=== PATIENT | female | born 1990 | race African-American/Black ===

== ENCOUNTER 2017-10-05 18:55 | Emergency (ER) | payer OTHER ==
[~2017-10-05] VITALS: Ht 170.2 cm; Wt 50.9 kg
[2017-10-05 19:02] VITALS: Ht 170.2 cm; Wt 50.9 kg
--- NOTE | 2017-10-05 20:19 | ERD ---
ER Documentation Chief Complaint Chief Complaint facial numbenss since this AM, no Neuro deficits now HPI Is a 27-year-old female presenting to the emergency department complaining of right-sided facial numbness since this morning. Patient states that she heard a pop in her neck and did a quick turn, she experienced vertigo and felt imbalanced while she was walking for 2 hours and then resolved. Patient states that she started experiencing numbness and tingling in her face since that occurrence. She denies headache, any other neuro deficit ROS All systems reviewed and are negative except as per history of present illness. Allergies Allergies: Coded Allergies: codeine (Verified Allergy, Unknown, 10/05/17) PMhx/Soc Medical and Surgical Hx: pt denies Medical Hx, pt denies Surgical Hx History of Surgery: No Anesthesia Reaction: No Hx Neurological Disorder: No Hx Respiratory Disorders: No Hx Cardiac Disorders: No Hx Psychiatric Problems: No Hx Miscellaneous Medical Probl: No Hx Alcohol Use: No Hx Substance Use: No Hx Tobacco Use: No Smoking Status: Never smoker Physical Exam Vitals Vital Signs Date Time Temp Pulse Resp B/P Pulse Ox O2 Delivery O2 Flow Rate FiO2 10/05/17 21:27 98.5 84 15 119/69 98 Room Air 10/05/17 19:02 98.7 98 18 116/73 97 Physical Exam GENERAL: well-developed/well-nourished, in no apparent distress, non-toxic appearing HENT: NC/AT, bilateral tympanic membrane is normal with good cone of light, nares patent, oropharynx clear without exudates EYES: Conjunctiva normal, PERRLA, EOMI, no nystagmus noted NECK: Supple, no lymphadenopathy PULM: CTA bilaterally, no rales, rhonchi, or wheezing heard CV: Normal S1S2, RRR, good capillary refill GI: Soft, non-distended, normal bowel sounds, non-tender BACK: No midline tenderness, no masses, No CVAT EXT: No clubbing, cyanosis, or edema NEURO: Alert and orientated to person, place, and time. CN II-IIX intact. Gait and coordination were normal. 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 Patient has normal neurologic exam, she appears well and has stable vital signs. She stable to be discharged home to follow-up with her primary care physician. A CT scan of the head was done and did not show any evidence of acute pathology. I have a low suspicion for central vertigo. Facial numbness is likely due to her anxiety. No evidence of CVA. Discussed return to the ER for any worsening symptoms patient understands and agrees with this plan Departure Diagnosis: Primary Impression: Numbness Condition: Stable CHRISTEL HUA PA-C Oct 05, 2017 20:19
--- NOTE | 2017-10-05 21:04 | RADRPT ---
PROCEDURE: CT Brain without contrast. CLINICAL INDICATION: Numbness and vertigo. TECHNIQUE: A CT of the brain was performed utilizing axial imaging from the skull base through the vertex without IV contrast. Multiplanar reformatted images were made. Images were reviewed on a [employer] workstation. The CTDIvol is 44.63 mGy and the DLP is 630.20 mGycm. DICOM images are available. One or more of the following dose reduction techniques were utilized: 1.) Automated exposure control 2.) Adjustment of the mA +/- kV according to patient's size 3.) Use of iterative reconstruction technique. COMPARISON: None FINDINGS: There is no intracranial hemorrhage, mass effect, or midline shift. No extra-axial fluid collection is seen. The ventricles and sulci are normal in size and configuration. The density of the brain is normal, and the cowan white matter differentiation appears well-preserved. The visualized paranasal sinuses and osseous structures are grossly unremarkable. IMPRESSION: 1. No evidence of acute intracranial pathology. 2. The brain is normal in appearance. RPTAT: [facility] Physician Hoa Date Time Electronically viewed and signed by Physician Hoa on 10/05/2017 21:04 RS/
[2017-10-05 21:27] VITALS: BP 119/69; PULSE 84; RESP 15; TEMP 98.5
== END 2017-10-05 21:28 | disposition home or self-care (01) ==
LOC: FTE 18:55
DX: R20.0 Anesthesia of skin (principal); R42 Dizziness and giddiness
CPT/HCPCS: 70450; Z7502

== ENCOUNTER 2018-01-12 10:21 | Emergency (ER) | END 2018-01-12 12:57 | disposition home or self-care (01) ==

== ENCOUNTER 2019-05-05 13:17 | Emergency (ER) | payer OTHER ==
[~2019-05-05] VITALS: Ht 170.2 cm; Wt 50.0 kg
[~2019-05-05 13:17] MED LIST: NAPR-985 PO
[2019-05-05 13:19] VITALS: Ht 170.2 cm; Wt 50.0 kg
[2019-05-05] MEDS ORDERED: ONDANSETRON 4 MG INJ IV STA ×2 (13:43→14:43)
[2019-05-05] MEDS ORDERED: FAMOTIDINE 20 MG INJ IV STA (13:43)
[2019-05-05] MEDS ORDERED: LIDOCAINE/MYLANTA 40 ML BTL PO STA (13:43)
[2019-05-05] MEDS ORDERED: SOD CHLORIDE 0.9% 1,000 ML IV STA (13:43)
--- NOTE | 2019-05-05 13:59 | ERD ---
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 Patient states that she normally takes zinc s upplements with food and this time she did not. She immediately started having some epigastric pain and started having nausea with multiple episodes of vomiting. Patient admits to a constant epigastric pain at this time. States that she no longer feels like she is going to vomit. States that this does not feel like heartburn. Denies fevers, chills, diarrhea, constipation, melena, hematochezia, dysuria, hematuria, vaginal pain, vaginal discharge and all other symptoms. Denies chance of being ROS All systems reviewed and are negative except as per history of present illness. Medications Home Meds Active Scripts Famotidine* (Pepcid*) 20 Mg Tablet, 20 MG PO BID for 4 Days, TAB Prov:BIPIN COX PA-C 05/05/19 Naproxen* (Naprosyn*) 500 Mg Tablet, 500 MG PO BID PRN for PAIN AND/OR INFLAMMATION, #30 TAB Prov:NADIA SWAIN PA-C 01/12/18 Allergies Allergies: Coded Allergies: codeine (Verified Allergy, Unknown, 05/05/19) PMhx/Soc History of Surgery: No Anesthesia Reaction: No Hx Neurological Disorder: No Hx Respiratory Disorders: No Hx Cardiac Disorders: No Hx Psychiatric Problems: No Hx Miscellaneous Medical Probl: No Hx Alcohol Use: No Hx Substance Use: No Hx Tobacco Use: No FmHx Family History: No diabetes Physical Exam Vitals Vital Signs Date Temp Pulse Resp B/P (MAP) Pulse Ox O2 O2 Flow FiO2 Time Delivery Rate 05/05/19 98.1 90 18 122/76 99 13:19 (91) Physical Exam Physical Exam Vitals signs: Reviewed by me. General: Well developed, well nourished, in no acute distress. Patient is awake and alert. Head: Normocephalic, atraumatic. Eyes: Normal conjunctiva, Pupils PERRLA, EOM intact grossly ENT: Pharynx is clear, Moist mucous membranes, external ears, nose and mouth normal Neck: Supple, no masses, lymphadenopathy or JVD Respiratory: Clear to auscultation bilaterally with no wheezing, rhonchi, rales, no distress Cardiovascular: RRR, no murmurs, rubs, or gallops Abdominal: Soft, nondistended, no peritoneal signs, no rigidity, no surgical abdomen, bowel sounds present all 4 quadrants, mild tenderness palpation epigastric region, nontender light deep palpation in all other areas, McBurney's point nontender : Deferred MSK: No edema, no unilateral swelling, 5/5 strength Back: No midline tenderness. No flank tenderness Neurologic: Alert and oriented, moving all extremities, normal speech, no focal weakness, no cerebellar signs. Normal mentation Skin: warm and dry, No rash Psych: Normal mood Result Diagram: 05/05/19 1404 05/05/19 1404 Results 24 hrs Laboratory Tests Test 05/05/19 13:53 05/05/19 14:04 05/05/19 14:33 Urine Color YELLOW Urine Clarity CLOUDY Urine pH 5.0 Urine Specific Baker 1.027 Urine Ketones TRACE mg/dL Urine Nitrite NEGATIVE mg/dL Urine Bilirubin NEGATIVE mg/dL Urine Urobilinogen NEGATIVE mg/dL Urine Leukocyte Esterase NEGATIVE Tara/ul Urine Microscopic RBC 1 /HPF Urine Microscopic WBC 1 /HPF Urine Squamous Epithelial Cells FEW /HPF Urine Mucus MANY /HPF Urine Hemoglobin NEGATIVE mg/dL Urine Glucose NEGATIVE mg/dL Urine Total Protein NEGATIVE mg/dl White Blood Count 9.7 10^3/ul Red Blood Count 4.12 10^6/ul Hemoglobin 12.7 g/dl Hematocrit 38.0 % Mean Corpuscular Volume 92.2 fl Mean Corpuscular Hemoglobin 30.8 pg Mean Corpuscular 33.4 g/dl Hemoglobin Concent Red Cell Distribution Width 11.3 % Platelet Count 248 10^3/UL Mean Platelet Volume 10.4 fl Immature Granulocytes % 0.200 % Neutrophils % 78.9 % Lymphocytes % 15.1 % Monocytes % 5.3 % Eosinophils % 0.2 % Basophils % 0.3 % Nucleated Red Blood Cells % 0.0 /100WBC Immature Granulocytes # 0.020 10^3/ul Neutrophils # 7.7 10^3/ul Lymphocytes # 1.5 10^3/ul Monocytes # 0.5 10^3/ul Eosinophils # 0.0 10^3/ul Basophils # 0.0 10^3/ul Nucleated Red Blood Cells # 0.0 10^3/ul Sodium Level 141 mmol/L Potassium Level 4.2 mmol/L Chloride Level 108 mmol/L Carbon Dioxide Level 24 mmol/L Anion Gap 9 Blood Urea Nitrogen 13 mg/dl Creatinine 0.67 mg/dl Est Glomerular Filtrat > 60 mL/min Rate mL/min Glucose Level 103 mg/dl Calcium Level 9.4 mg/dl Total Bilirubin 0.6 mg/dl Direct Bilirubin 0.00 mg/dl Indirect Bilirubin 0.6 mg/dl Aspartate Amino 24 IU/L Transf (AST/SGOT) Alanine 12 IU/L Aminotransferase (ALT/SGPT) Alkaline Phosphatase 46 IU/L Total Protein 8.4 g/dl Albumin 4.5 g/dl Globulin 3.90 g/dl Albumin/Globulin Ratio 1.15 Lipase 112 U/L POC Beta HCG, Qualitative NEGATIVE Current Medications Medications Dose Sig/Les Start Time Status Last (Trade) Ordered Route PRN Stop Time Admin Dose Reason Admin Sodium 1,000 ml @ Q1H STAT 05/05/19 DC 05/05/19 Chloride 1,000 mls/hr IV 13:43 14:06 05/05/19 14:42 Ondansetron 4 mg ONCE STAT 05/05/19 DC 05/05/19 HCl (Zofran IV 13:43 14:06 Inj) 05/05/19 13:45 Famotidine 20 mg ONCE STAT 05/05/19 DC 05/05/19 (Pepcid Iv) IV 13:43 14:06 05/05/19 13:45 40 ml ONCE STAT 05/05/19 DC 05/05/19 Miscellaneous PO 13:43 14:05 Medication 05/05/19 13:45 (Gi Cocktail (2)) Morphine 4 mg ONCE STAT 05/05/19 DC 05/05/19 Sulfate IV 14:43 14:48 (morphine) 05/05/19 14:44 Ondansetron 4 mg ONCE STAT 05/05/19 DC 05/05/19 HCl (Zofran IV 14:43 14:47 Inj) 05/05/19 14:44 Procedures/MDM EKG, MONITORS, & DIAGNOSTIC IMAGING: [place] [id number] Radiology Main Line: [phone] DIAGNOSTIC IMAGING REPORT Patient: GOKUL CONTEH : 1990 Age: 29 Sex: F MR #: [id number] DOS: 05/05/19 1343 Ordering MD: BIPIN COX PA-C Location: [facility] Room/Bed: PROCEDURE: US Abdomen (right upper quadrant). CLINICAL INDICATION: Abdominal pain TECHNIQUE: Multiple real-time longitudinal and transverse images of the right upper quadrant of the abdomen were acquired utilizing a curved array transducer. Images were reviewed on a high-resolution PACS workstation. COMPARISON: None FINDINGS: The liver is normal in size and echogenicity without focal mass or intrahepatic biliary dilatation. The gallbladder is normal. There is no pericholecystic fluid or gallbladder wall thickening or gallstones. No intra or extrahepatic b iliary dilatation is seen. The common bile duct measures 4.2 mm in maximal dimension. The visualized portions of the pancreas are unremarkable with obscuration of the tail of the pancreas. No free fluid is identified. The right kidney measures 9.7 cm in length. There is normal echogenicity within the right kidney. There is no perinephric fluid collection. No hydronephrosis, mass, or calculus is seen. IMPRESSION: Unremarkable right upper quadrant ultrasound. RPTAT: JJ .Viral Hawkins MD, MD Date Time Electronically viewed and signed by .Viral Hawkins MD, on 05/05/2019 14:35 .A/ CC: BIPIN COX PA-C [id number] LAB INTERPRETATION: CBC shows no evidence of hemorrhage or infection Chemistry shows no evidence of significant electrolyte abnormalities or renal insufficiency Liver function test shows no evidence of acute biliary or hepatic dysfunction Lipase shows no evidence of acute pancreatitis Urine negative Urinalysis unremarkable ER COURSE: The patient was given iv normal saline, pepcid, zofran, gi cocktail, and morphine The medication was well tolerated and the patient reports improvement in symptoms. The patient was stable throughout ED course. I kept the patient and/or family informed of laboratory and diagnostic imaging results throughout the emergency room course. The patient was promptly evaluated and a treatment plan was devised based on H&P and other data. This plan was discussed with the patient who agreed and had no further questions or concerns prior to discharge. MEDICAL DECISION MAKING: This is a 29-year-old female with a history of GERD who presents ED with complaints of epigastric abdominal pain that started 1 hour prior to arrival in ED after taking a zinc supplement. Ultrasound of gallbladder is unremarkable. Blood work is unremarkable. Given history and physical and lab work I believe that patient's epigastric abdominal pain is likely due to gastritis. Patient was given medication in the emergency department reports resolution of symptoms. Will send patient home with Pepd. 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 Patient was also advised to return to the emergency department in 8 to 10 hours to have repeat abdominal examination and sooner if she experiences any worsening symptoms. At this time there is no gastrointestinal emergency. No evidence of cholecystitis, cholangitis, choledocholithiasis, pancreatitis, small bowel obstruction, perforated viscus, appendicitis, volvulus, ovarian torsion, tubo-ovarian abscess, ectopic , among others. VitaLS are stable patient can be managed with close outpatient follow-up. Advised patient to follow-up with primary care in the next 48 hours. Return to ED with any worsening symptoms DISPOSITION PLAN: We discussed follow up with the patient's primary care doctor within 24 to 48 hours. Patient counseled regarding my diagnostic impression and care plan. Prior to discharge all questions answered. Pt agrees with treatment plan and understands strict return precautions. Precautionary instructions provided including instructions to return to the ER if not improving or for any worsening or changing symptoms or concerns. SPECIALIST FOLLOW UP RECOMMENDED: None Patient has been advised to follow up with primary care in 1-2 days. Disclaimer: Inadvertent spelling and grammatical errors are likely due to EHR/dictation software use and do not reflect on the overall quality of patient care. Also, please note that the electronic time recorded on this note does not necessarily reflect the actual time of the patient encounter. Departure Diagnosis: Primary Impression: Epigastric pain Condition: Stable Patient Instructions: Epigastric Pain (Uncertain Cause), Gastritis (Adult), Gastritis Vs. Ulcer, Gerd (Adult), Treating Gastritis Referrals: PATTIE NAVA MD, GNANA MD GORDON,DHAVAL HOLDEN,JUNAID SULLIVAN,KATIE Price [facility] Additional Instructions: Patient advised to return to the ED immediately for new or worsening symptoms. Patient advised to follow up with primary care provider in the next 24-48 hours. Patient verbalized understanding and agrees with treatment plan and course of action. If patient has no primary care they may follow up with one of the community clinics listed on the following page or one of the options listed below [facility] + [address] [address] or [facility] [id number] [place] [phone] or [facility] [address] [place] [address] BIPIN COX PA-C May 05, 2019 13:59
[2019-05-05] MEDS ORDERED: morphine 2 MG INJ IV STA (14:43)
[2019-05-05] MEDS ORDERED: FAMO-96 PO (15:22)
[2019-05-05 16:55] VITALS: BP 100/67; PULSE 88; RESP 16
[2019-05-05] MEDS ORDERED: METOCLOPRAMIDE 10 MG INJ IV ONE (17:00)
== END 2019-05-05 17:36 | disposition home or self-care (01) ==
LOC: FTE 13:17
DX: R10.13 Epigastric pain (principal); R11.10 Vomiting, unspecified
CPT/HCPCS: 36415; 76705; 80053; 81001; 81025; 83690; 85025; 96361; 96374; 96375; 96376; J2270; J2405; J2765; J7030; Z7502; Z7610

== ENCOUNTER → 2019-08-26 16:28 | Emergency (ER) | payer OTHER ==
[~2019-08-26] VITALS: Ht 170.2 cm; Wt 50.0 kg
[~2019-08-26 16:28] MED LIST changes: +FAMO-96 PO; +IBUP-1542 PO; +OMEP20CA17 PO; +RANI-535 PO
[2019-08-26 16:35] VITALS: BP 134/86; PULSE 86; RESP 18; Ht 170.2 cm; Wt 50.0 kg
== END | disposition home or self-care (01) ==
LOC: E/R 16:28 → FTE 16:28
DX: S06.0X0A Concussion without loss of consciousness, initial encounter (principal); W22.8XXA Striking against or struck by other objects, initial encounter; Y92.9 Unspecified place or not applicable
CPT/HCPCS: 70450; 72125; Z7502